=== PATIENT | female | born 1990 | race Caucasian/White ===

== ENCOUNTER → 2019-04-19 11:46 | Outpatient (CLI) | payer OTHER, SELFPAY ==
[2019-04-25 12:43] LABS: C.trachomatis RNA NOT DETECTED; N.gonorrhoeae RNA NOT DETECTED
== END ==
PROVIDERS: Visit Provider Obstetrics & Gynecology
DX: Z11.3 Encounter for screening for infections with a predominantly sexual mode of transmission (principal)
CPT/HCPCS: 87491; 87591